=== PATIENT | male | born 1955 | race Caucasian/White ===

== ENCOUNTER → 2019-03-18 | Outpatient (CLI) | payer BC, OTHER ==
--- NOTE | 2019-03-18 14:41 | 2DMMODE ---
[facility] [place] [address] 2 D/M-MODE ECHOCARDIOGRAM Name: GEE ANDRADE Room #: REG [facility]#: [id number] ������������� Admission: 03/18/19 ������������� Attend Phys: Brenden Mcdermott Discharge: ��� ������������� ��� Date of : 59 Date of Service: 03/18/19 1441 �� Report #: [id number] �������� ��������������������������������������������[id number] THIS REPORT FOR: //name// APPROVED REPORT Study performed: 03/18/2019 14:01:13 EXAM: Comprehensive 2D, Doppler, and color-flow Echocardiogram Patient Location: Out-Patient Status: routine BSA: 1.95 HR: 45 bpm BP: 116/70 mmHg Rhythm: Bradycardia/NSR Other Information Study Quality: Adequate Technically limited study due to lung interference. Indications Palpitations 2D Dimensions RVDd: 35.63 mm IVSd: 8.88 (7-11mm) LVDd: 48.53 mm PWd: 9.42 (7-11mm) Ascending Ao: 32.27 (22-36mm) LVDs: 29.50 (25-40mm) Aortic Root: 42.68 mm Volumes Left Atrial Volume (Systole) Single Plane 4CH: 34.12 mL Single Plane 2CH: 32.67 mL LA ESV Index: 18.00 mL/m2 Aortic Valve AoV Peak Syd.: 1.08 m/s AO Peak Gr.: 4.64 mmHg LVOT Max P.90 mmHg LVOT Max V: 0.85 m/s Mitral Valve E/A Ratio: 1.4 MV Decel. Time: 277.74 ms [facility] [address] [place] [address] 2 D/M-MODE ECHOCARDIOGRAM Name: GEE ANDRADE Room #: REG [facility]#: [id number] ������������� Admission: 03/18/19 ������������� Attend Phys[facility] ��� ������������� ��� Date of : 59 Date of Service: 03/18/19 1441 �� Report #: [id number] �������� ��������������������������������������������[id number] MV E Max Syd.: 0.70 m/s MV A Syd.: 0.49 m/s MV PHT: 80.54 ms IVRT: 101.50 ms Pulmonary Valve PV Peak Syd.: 0.89 m/s PV Peak Gr.: 3.15 mmHg Pulmonary Vein P Vein S: 0.35 m/s P Vein D: 0.45 m/s P Vein S/D Ratio: 0.78 Tricuspid Valve TR Peak Syd.: 1.74 m/s RAP Estimate: 5.00 mmHg TR Peak Gr.: 12.13 mmHg PA Pressure: 17.00 mmHg Left Ventricle The left ventricle is normal size. There is normal LV segmental wall motion. There is normal left ventricular wall thickness. Left ventricular systolic function is normal. LVEF is 55-60%. The left ventricular diastolic function is normal. Right Ventricle The right ventricle is normal size. The right ventricular systolic function is normal. Atria The left atrium size is normal. The right atrium size is normal. Aortic Valve Aortic valve is trileaflet. Trace aortic regurgitation. There is no aortic valvular stenosis. Mitral Valve Mitral valve leaflets are mildly thickened. Trace to mild mitral regurgitation. Tricuspid Valve The tricuspid valve is normal in structure. Trace tricuspid regurgitation. Estimated PAP is 17mmHg. Pulmonic Valve The pulmonary valve is normal in structure. Mild to moderate pulmonic [facility] [address] [place] [address] 2 D/M-MODE ECHOCARDIOGRAM Name: GEE ANDRADE [facility] [id number] ������������� Admission: 03/18/19 ������������� Attend Phys: [facility] Discharge: ��� ������������� ��� Date of : 59 Date of Service: 03/18/19 1441 �� Report #: [id number] �������� ��������������������������������������������[id number] regurgitation. Great Vessels Aortic root is dilated at the level of the sinuses at 4.3cm. The ascending aorta is normal in size. IVC is normal in size and collapses >50% with inspiration. Pericardium There is no pericardial effusion. <Conclusion> The left ventricle is normal size. LVEF is 55-60%. Aortic valve is trileaflet. Trace aortic regurgitation. Mitral valve leaflets are mildly thickened. Trace to mild mitral regurgitation. The tricuspid valve is normal in structure. Trace tricuspid regurgitation. Estimated PAP is 17mmHg. The pulmonary valve is normal in structure. Mild to moderate pulmonic regurgitation. There is no pericardial effusion. ��������������������������������������������� <ELECTRONICALLY SIGNED> ���������������������������������������� By: Venkata Cheney MD ��������������������������������������������� 03/18/19 1441 [id number] Venkata Cheney MD /INF
== END ==
LOC: CV 07:31
DX: I08.3 Combined rheumatic disorders of mitral, aortic and tricuspid valves (principal)

== ENCOUNTER → 2019-04-16 | Outpatient (CLI) | payer BC, OTHER ==
[2019-04-16 13:37] LABS: HEMATOCRIT 40.5 % (42.0-52.0); HEMOGLOBIN 13.8 gm/dL (14.0-18.0); MCHC 34.1 g/dL (28.0-37.0); MCV 90.9 fL (80.0-100.0); RBC 4.45 mil/uL (4.50-6.00); RDW 12.1 % (10.5-14.5); WBC 5.2 thou/uL (4.0-11.0)
[2019-04-16 13:51] LABS: ALBUMIN 3.9 g/dL (3.4-5.0); CALCIUM 8.9 mg/dL (8.5-10.1); CREATININE 1.1 mg/dL (0.7-1.3); POTASSIUM 4.5 mmol/L (3.5-5.1); TOTAL BILIRUBIN 0.5 mg/dL (<0.1-1.0); TOTAL PROTEIN 7.3 g/dL (6.4-8.2)
== END ==
LOC: CAT 10:32
PROVIDERS: Internal Medicine Cardiovascular Disease
DX: I48.91 Unspecified atrial fibrillation (principal); I25.10 Atherosclerotic heart disease of native coronary artery without angina pectoris

== ENCOUNTER 2019-04-23 06:49 | Observation (INO) | payer BC, OTHER ==
[~2019-04-23] VITALS: Ht 180.3 cm; Wt 79.9 kg
--- NOTE | ~2019-04-23 | P ---
[facility] [place] [address] PROCEDURE REPORT Name: GEE ANDRADE Room #: 204-P [facility] M.R.#: [id number] Admission: 04/23/19 ������������������ Attend Phys: Brenden Mcdermott MD Discharge: 04/24/19 ������������������ Date of : 59 Report #: [id number] THIS REPORT FOR: //name// CC: Brenden Sifuentes DATE OF SERVICE: 04/24/2019 PREOPERATIVE DIAGNOSES: 1. Atrial fibrillation. 2. Atrial tachycardia. HISTORY: The patient is a 64-year-old with history of atrial tachycardia and atrial fibrillation here for an ablation. PROCEDURES: 1. Atrial fibrillation ablation, CPT code 87708. 2. Program stimulation and pacing after IV drug infusion, CPT code 22358. 3. 3D mapping, CPT code 13481. 4. Intracardiac echocardiogram, CPT code 09279. ANESTHESIA: The patient underwent general anesthesia with no anesthesia related complications. DESCRIPTION OF PROCEDURE: The patient underwent informed consent. We discussed the details of the procedure including the risks, which include, but not limited to, bleeding, vascular damage, stroke and MT. He understood these risks and is willing to proceed. The patient was brought to the EP laboratory in a fasting and unsedated state and prepped and draped in sterile fashion. Next, I injected lidocaine at the right groin region, obtained access to the right femoral vein x 3, placing 8, 9 and 7-Arabic short sheath using the modified Seldinger technique. At baseline, the patient was in sinus rhythm with sinus cycle length of 1300 milliseconds, MO interval 175 milliseconds, QRS duration 85 milliseconds, QT interval 490 milliseconds. Next, using a Lasso catheter, I created a detailed 3D geometry of the right atrium. I then placed the ice catheter into the right atrium and I was able to localize the coronary sinus. I then was able to place the decapolar catheter easily in the coronary sinus, all without fluoroscopy. Next, the patient was systemically heparinized and a transseptal was performed using an SL1 sheath and a [place] needle. This was straightforward and in fact, the needle crossed into the left atrium without having to deliver radiofrequency ablation. I then placed a wire up into the left superior pulmonary vein and advanced the SL1 sheath into the left atrium and then, we exchanged this for the cryosheath. I then created a 3D geometry of the left atrium using a Lasso [facility] [address] [place] [address] PROCEDURE REPORT Name: GEE ANDRADE Room #: 204-P [facility] Cale Rollins#: [id number] Admission: 04/23/19 ������������������ Attend Phys: Brenden Mcdermott MD Discharge: 04/24/19 ������������������ Date of : 59 Report #: [id number] catheter and then, I placed the cryoablation balloon into the left atrium. I first started by isolating the left superior pulmonary vein. I performed a single 3-minute freeze as this vein isolated within 36 seconds. I turned my attention to the left inferior pulmonary vein and performed a single 4-minute freeze as this vein isolated within 37 seconds. I turned my attention to the right superior pulmonary vein and I performed a 150-second freeze and the vein isolated within 30 seconds of this freeze. I performed an additional freeze of 120 seconds in this vein. I then turned my attention to the right inferior pulmonary vein. This vein isolated within 25 seconds of the first freeze. Therefore, I performed a single 3-minute freeze in the right inferior pulmonary vein. Next, I created a repeat voltage map of the left atrium, which showed that we had created a wide circumferential ablation of the 4 pulmonary veins. Basic EP study was performed. Atrial burst pacing was performed from the decapolar catheter from the coronary sinus. AV block was noted at 400 milliseconds. Atrial ERP was noted 280 milliseconds at [address] cycle length. Next, isoproterenol was initiated at 2 mcg per minute. AV block was noted at 290 milliseconds. Atrial ERP was noted at 210 milliseconds at [address] cycle length. I also delivered double atrial extrastimuli and we did not see any SVT, atrial fibrillation or focal atrial tachycardia. Then, isoproterenol was again increased to 5 mcg per minute and again, atrial pacing maneuvers were performed and we could not induce any arrhythmias. On his prior cardiac monitors, he had close to 1000 episodes of atrial tachycardia lasting anywhere from 5-20 seconds. We could not induce any of these during the procedure. We turned off isoproterenol and monitored to see if this would trigger any focal atrial tachycardia and we did not see anything. As such, the procedure was concluded. Using intracardiac ultrasound, I verified there was no pericardial effusion. As such, the procedure was concluded. Catheters and sheaths were pulled and hemostasis was obtained and the patient awoke neurologically and hemodynamically intact. No complications and no significant bleeding. Three minutes of fluoroscopy was utilized for the procedure. CONCLUSIONS: 1. Successful atrial fibrillation ablation with isolation of the 4 pulmonary veins. 2. Normal electrophysiology study with no inducible supraventricular tachycardia, atrial tachycardia or atrial fibrillation. ��������������������������������������������� ���������������������������������������� By: ��������������������������������������������� 1202 1042 Brenden Mcdermott MD /nt
[2019-04-23 07:41] LABS: HEMATOCRIT 40.7 % (42.0-52.0); HEMOGLOBIN 13.9 gm/dL (14.0-18.0); MCH 31.1 pg (26.0-34.0); MCHC 34.2 g/dL (28.0-37.0); MCV 91.1 fL (80.0-100.0); RBC 4.47 mil/uL (4.50-6.00); RDW 12.1 % (10.5-14.5); WBC 3.3 thou/uL (4.0-11.0)
[2019-04-23 07:51] LABS: CALCIUM 8.8 mg/dL (8.5-10.1); CREATININE 1.1 mg/dL (0.7-1.3)
[2019-04-23 07:53] LABS: APTT 28.1 Seconds (24.5-32.8); PROTIME 10.9 Seconds (9.3-11.4)
[2019-04-23 07:57] LABS: ALBUMIN 3.9 g/dL (3.4-5.0); TOTAL BILIRUBIN 0.4 mg/dL (<0.1-1.0); TOTAL PROTEIN 7.4 g/dL (6.4-8.2)
[2019-04-23 07:58] VITALS: BP 135/83
[2019-04-23] MEDS ORDERED: FLECAINIDE ACET50 M1 PO (08:11)
[2019-04-23] MEDS ORDERED: TOPROL XL25 MG PO (08:11)
[2019-04-23] MEDS ORDERED: REVATIO20 MG PO (08:12)
[2019-04-23] MEDS ORDERED: ZOCOR20 MG PO (08:13)
[2019-04-23] MEDS ORDERED: PRADAXA150 MG PO (08:16)
[2019-04-23 12:41] VITALS: BP 110/71
--- NOTE | 2019-04-23 16:07 | NUR ---
64 YO MALE TRANSFERRED FROM [facility] TO 204. R GROIN DRESSING, CDI; NO HEMATOMA, VSS, ALERT AND ORIENTED. WILL CONTINUE TO MONITOR
[2019-04-23 16:10] VITALS: BP 122/81
[2019-04-23 19:45] VITALS: BP 111/70
[2019-04-24 00:37] VITALS: BP 100/63
--- NOTE | 2019-04-24 03:11 | NUR ---
ASSESSMENTS CHARTED. WENT TO [facility]CHOLOG[facility]PERATIONS SPECIALIST HAD AN AFIB ABLATION. RIGHT GROIN ACCESS [place] CLOSURE, SITE IS CLEAN DRY INTACT, SOFT. PLAN OF CARE IS TO GO HOME TODAY.
[2019-04-24 05:38] VITALS: BP 104/63
[2019-04-24 07:41] VITALS: BP 109/62
[2019-04-24 08:24] VITALS: BP 109/62
[2019-04-24 09:15] VITALS: BP 109/62
--- NOTE | 2019-04-24 10:31 | NUR ---
AAOX4. BEING DISCHARGED TO HOME. DENIES PAIN. DRESSING RIGHT GROIN CDI. DISCHARGE INSTRUCTIONS GIVEN.
== END 2019-04-24 11:26 | disposition home or self-care (01) ==
LOC: CATH 06:49 → 2N 12:31 → CATH 14:33 → 2N 04-24 11:26
PROVIDERS: ADMIT Internal Medicine Cardiovascular Disease
DX: I48.0 Paroxysmal atrial fibrillation (principal); I47.1 Supraventricular tachycardia; Z79.899 Other long term (current) drug therapy
CPT/HCPCS: 62110; 62900; 70005

== ENCOUNTER → 2021-11-10 | Outpatient (CLI) | payer OTHER ==
[~2021-11-10] MED LIST: FLECAINIDE ACET50 M1 PO; PRADAXA150 MG PO; REVATIO20 MG PO; TOPROL XL25 MG PO; ZOCOR20 MG PO
== END ==
LOC: CAT 08:40
PROVIDERS: ATTEND Internal Medicine Cardiovascular Disease
DX: Z13.6 Encounter for screening for cardiovascular disorders (principal)

== ENCOUNTER → 2021-12-06 | Outpatient (CLI) | payer BC, OTHER | LOC: SJCVCIMAG 06:44 | PROVIDERS: ATTEND Internal Medicine Cardiovascular Disease | DX: I07.1 Rheumatic tricuspid insufficiency (principal); R94.31 Abnormal electrocardiogram [ECG] [EKG]; R00.2 Palpitations; E78.2 Mixed hyperlipidemia; Z79.82 Long term (current) use of aspirin; Z79.899 Other long term (current) drug therapy ==

== ENCOUNTER → 2021-12-15 | Outpatient (CLI) | payer BC, OTHER | LOC: SJCVCIMAG 08:21 | PROVIDERS: ATTEND Internal Medicine Cardiovascular Disease | DX: I25.10 Atherosclerotic heart disease of native coronary artery without angina pectoris (principal); R93.1 Abnormal findings on diagnostic imaging of heart and coronary circulation ==